=== PATIENT | female | born 1995 | race Caucasian/White ===

== ENCOUNTER 2024-01-10 06:48 | Emergency (ER) | payer MEDICAID ==
[~2024-01-10] VITALS: Ht 149.9 cm; Wt 79.1 kg
[2024-01-10 07:29] VITALS: BP 124/73; PULSE 105; RESP 18; TEMP 98.2; O2SAT 97
[2024-01-10] MEDS ORDERED: AUG875T PO (07:48)
[2024-01-10] MEDS ORDERED: NABU-72 PO (07:48)
== END 2024-01-10 07:49 | disposition home or self-care (01) ==
LOC: ER 06:48
DX: J03.90 Acute tonsillitis, unspecified (principal); Z79.899 Other long term (current) drug therapy